=== PATIENT | male | born 1980 | race African-American/Black ===

== ENCOUNTER 2017-05-29 08:12 | Emergency (ER) | payer SELFPAY ==
[~2017-05-29] VITALS: Ht 193 cm; Wt 117.9 kg
[2017-05-29] MEDS ORDERED: RT-ALBUTEROL/IPRATROPIUM 3 ML (DUONEB) VIAL ONE (08:21)
[2017-05-29] MEDS ORDERED: RT-ALBUTEROL/IPRATROPIUM 3 ML (DUONEB) VIAL INH ONE ×2 (08:30→08:45)
[2017-05-29] MEDS ORDERED: predniSONE 20 MG TAB PO ONE (08:30)
--- NOTE | 2017-05-29 08:37 | ED Respiratory ---
General Chief Complaint: Respiratory Problems Stated Complaint: SOB,ASTHMA Nursing Triage Note: PT C/O ASTHMA ATTACK FOR THE PAST COUPLE DAYS. Source: patient Exam Limitations: no limitations History of Present Illness Date Seen by Provider: May 29, 2017 Time Seen by Provider: 08:13 Initial Comments Here with report of asthma attack in the past couple of days that is worse this morning. 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 Has history of asthma since childhood. Splint several months since he's been on steroids. He has been using his inhaler and that is now empty and is no longer working. Denies fever or chills or other concerns. Noted to have high blood pressure on arrival and states that he's been told this before. He is not on blood pressure medicines. Other than the inhaler he takes no other medicines. Timing/Duration: getting worse, other (few days) Severity: moderate Prior Episodes/Possible Cause: occasional episodes Modifying Factors: Worse With Activity, Improves With Albuterol Inhaler, Improves With Rest Associated Symptoms: No chest pain/soreness (blacked out), No fever/chills, nasal congestion, nasal drainage, shortness of breath, wheezing Allergies and Home Medications Allergies Coded Allergies: Penicillins (Verified Allergy, Unknown, 05/29/17) Home Medications Albuterol Sulfate 1 Puff Puff, 2 PUFF IH Q4H PRN for WHEEZING 1 PUFF = 90 MCG Prescribed by: SHAJI WOODSON on 05/29/17 0843 Prednisone 20 Mg Tab, 40 MG PO DAILY Prescribed by: SHAJI WOODSON on 05/29/17 0843 Patient Home Medication List Home Medication List Reviewed: Yes Constitutional: see HPI, No chills, No fever EENTM: nose congestion, No throat pain Respiratory: short of breath, wheezing Cardiovascular: no symptoms reported Gastrointestinal: No nausea, No vomiting Musculoskeletal: no symptoms reported Past Dolozlg-Hsadwm-Buunwe Hx Patient Social History Alcohol Use: Occasionally Uses Recreational Drug Use: No Smoking Status: Never a Smoker Recent Foreign Travel: No Contact w/Someone Who Travel: No Recent Infectious Disease Expo: No Physical Abuse: No Sexual Abuse: No Surgeries History of Surgeries: No Respiratory History of Respiratory Disorde: Yes Respiratory Disorders: Asthma Cardiovascular History of Cardiac Disorders: Yes Cardiac Disorders: Hypertension Neurological History of Neurological Disord: No Psychosocial Suicide Risk Score: 0 Reviewed Nursing Assessment Reviewed/Agree w Nursing PMH: Yes Family Medical History Significant Family History: Hypertension Physical Exam Vital Signs Vital Signs - First Documented 05/29/17 08:15 Temp 96.1 Pulse 86 Resp 18 B/P (MAP) 138/114 (122) Pulse Ox 95 O2 Delivery Room Air Capillary Refill : Less Than 3 Seconds General Appearance: WD/WN, no apparent distress Neck: full range of motion, supple Respiratory: no accessory muscle use, wheezing Cardiovascular: regular rate, rhythm, no murmur Neurologic/Psychiatric: alert, oriented x 3 Progress/Results/Core Measures Suspected Sepsis Recent Fever Within 48 Hours: No Infection Criteria Present: None New/Unexplained Altered Menta: No Sepsis Screen: No Definite Risk Sepsis Diagnosis: SIRS Temperature:96.1 Pulse: 86 Respiratory Rate: 18 Blood Pressure 138 /114 Mean: 122 Results/Orders My Orders Orders - SHAJI WOODSON MD Albuterol/Ipra Inhalation Soln (Duoneb I (05/29/17 08:30) Svn Sm Volume Nebulizer Rt-Rfs (05/29/17 08:23) Prednisone Tablet (Deltasone Tablet) (05/29/17 08:30) Albuterol/Ipra Inhalation Soln (Duoneb I (05/29/17 08:21) Albuterol/Ipra Inhalation Soln (Duoneb I (05/29/17 08:45) Svn Sm Volume Nebulizer Rt-Rfs (05/29/17 08:39) Albuterol Pre-Mix Nebs (Rt) (Proventil (05/29/17 09:32) Svn Sm Volume Nebulizer Rt-Rfs (05/29/17 09:32) Medications Given in ED Current Medications Medications Dose Ordered Sig/Ti Route Start Time Stop Time Status Last Admin Dose Admin Albuterol/ Ipratropium 3 ml ONCE ONCE INH 05/29/17 08:45 05/29/17 08:46 DC 05/29/17 08:40 3 ML Albuterol/ Ipratropium 3 ml STK-MED ONCE .ROUTE 05/29/17 08:21 05/29/17 08:25 DC 05/29/17 08:26 3 ML Prednisone 40 mg ONCE ONCE PO 05/29/17 08:30 05/29/17 08:31 DC 05/29/17 08:38 40 MG Vital Signs/I&O Vital Sign - Last 12Hours 05/29/17 05/29/17 05/29/17 08:15 08:26 08:36 Temp 96.1 Pulse 86 Resp 18 B/P (MAP) 138/114 (122) Pulse Ox 95 94 5 O2 Delivery Room Air Room Air Room Air Capillary Refill : Less Than 3 Seconds Blood Pressure Mean: 122 Progress Note : Progress Note Seen and evaluated. Duo neb ordered. Prednisone 40 mg by mouth ordered. Albuterol treatment.. Overall improved but states feels like to set and see how that's working. 0930: States still feels better but has some trace wheeze. He would like another treatment and then he believes that he would be able to go safely. Albuterol neb ordered. Discharged home after with return precautions. Patient verbalize understanding instructions and agreement with plan. Departure Impression Impression: Primary Impression: Asthma exacerbation Qualified Codes: J45.21 - Mild intermittent asthma with (acute) exacerbation Additional Impression: Hypertension Qualified Codes: I10 - Essential (primary) hypertension Disposition: 01 HOME, SELF-CARE Condition: Stable Departure-Patient Inst. Decision time for Depature: 08:40 Referrals: NO,LOCAL PHYSICIAN (PCP/Family) Primary Care Physician Patient Instructions: Asthma, Adult (DC), High Blood Pressure (DC) Add. Discharge Instructions: All discharge instructions reviewed with patient and/or family. Voiced understanding. Take medications as directed. You should follow-up with your Dr. when you return back home for recheck of your blood pressure as you likely need blood pressure treatment. Return for worse pain, fever, vomiting, weakness, breathing problems or other concerns as needed. Scripts Albuterol Sulfate (PROAIR HFA) 1 Puff Puff 2 PUFF IH Q4H Y for WHEEZING, #1 INHALER 0 Refills 1 PUFF = 90 MCG Prov: SHAJI WOODSON MD 05/29/17 Prednisone (Prednisone) 20 Mg Tab 40 MG PO DAILY, #8 TAB 0 Refills Prov: SHAJI WOODSON MD 05/29/17 SHAJI WOODSON MD May 29, 2017 08:37
[2017-05-29] MEDS ORDERED: PRD20T PO (08:43)
[2017-05-29] MEDS ORDERED: RT-ALBUINH IH (08:43)
[2017-05-29] MEDS ORDERED: RT-ALBUTEROL SULF 2.5 MG/3 ML PRE-MIX VIAL INH STA (09:32)
[2017-05-29 09:55] VITALS: BP 129/89
== END 2017-05-29 09:55 | disposition home or self-care (01) ==
LOC: ER 08:15
DX: J45.901 Unspecified asthma with (acute) exacerbation (principal); I10 Essential (primary) hypertension; Z88.0 Allergy status to penicillin; Z79.52 Long term (current) use of systemic steroids
CPT/HCPCS: 94640; 99283